=== PATIENT | male | born 1990 | race Hispanic/Latino ===

== ENCOUNTER 2017-02-26 18:03 | Emergency (ER) | payer OTHER ==
[~2017-02-26] VITALS: Ht 177.8 cm; Wt 90.0 kg
[2017-02-26 18:07] VITALS: BP 141/85; PULSE 66; RESP 16; O2SAT 99
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
== END 2017-02-26 18:55 | disposition home or self-care (01) ==
LOC: EDBD 18:03 → SED 18:03
DX: S39.012A Strain of muscle, fascia and tendon of lower back, initial encounter (principal); V43.52XA Car driver injured in collision with other type car in traffic accident, initial encounter; Y93.89 Activity, other specified; Y92.410 Unspecified street and highway as the place of occurrence of the external cause; Y99.8 Other external cause status